=== PATIENT | male | born 1995 ===

== ENCOUNTER 2018-06-28 21:31 | Emergency (ER) | payer SELFPAY ==
--- NOTE | 2018-06-28 22:15 | ED PDOC ---
HPI: Psych/Substance Abuse Time Seen by Provider: 06/28/18 21:41 Chief Complaint (Nursing): Altered Mental Status Chief Complaint (Provider): Altered Mental Status ED Caveat: Intoxicated History Per: EMS History/Exam Limitations: intoxication Onset/Duration Of Symptoms: Unknown Current Symptoms Are (Timing): Still Present Modifying Factor(s): Alcohol Additional Complaint(s): 23 y/o male brought in by EMS for a crisis evaluation. EMS report the patient's mother called 911 due to the patient's bizarre behavior. Patiently had reportedly drank alcohol today. Patient is unwilling to provide any history. Patient noted to be acting very bizarre in the ED. PMD: no provider Past Medical History Reviewed: Historical Data, Nursing Documentation, Vital Signs Vital Signs: Last Vital Signs Temp Pulse 124 H 06/28/18 21:34 Resp 20 06/28/18 21:34 BP 142/90 06/28/18 21:34 Pulse Ox 98 06/28/18 21:34 - Medical History PMH: No Chronic Diseases - Surgical History Surgical History: No Surg Hx - Family History Family History: States: Unknown Family Hx - Social History Alcohol: > 2 Drinks/Day - Allergies Allergies/Adverse Reactions: Allergies Allergy/AdvReac Type Severity Reaction Status Date / Time No Known Allergies Allergy Verified 06/28/18 21:33 Review of Systems Review Of Systems: ROS cannot be obtained secondary to pt's inabilty to answer questions. Physical Exam - Reviewed Nursing Documentation Reviewed: Yes Vital Signs Reviewed: Yes - Physical Exam Appears: Positive for: No Acute Distress Head Exam: Positive for: ATRAUMATIC, NORMOCEPHALIC Skin: Positive for: Normal Color, Warm, Dry Eye Exam: Positive for: Normal appearance, EOMI, PERRL Neck: Positive for: Normal, Painless ROM Cardiovascular/Chest: Negative for: Bradycardia, Tachycardia Respiratory: Negative for: Accessory Muscle Use, Respiratory Distress Gastrointestinal/Abdominal: Positive for: Normal Exam, Soft. Negative for: Tenderness Extremity: Positive for: Normal ROM Neurological/Psych: Positive for: Awake, Alert, Gait (steady), Other (slurred speech. Patient making strange gestures and sounds in the ED. ) - Laboratory Results Result Diagrams: 06/28/18 22:54 06/28/18 22:54 - ECG O2 Sat by Pulse Oximetry: 98 (RA) Pulse Ox Interpretation: Normal Medical Decision Making Medical Decision Making: Time: 2145 Impression: 23 y/o male brought in for crisis evaluation, in setting of possible substance abuse. Plan: -- EKG -- Alcohol Serum -- CMP -- Urine Drug Screen -- Magnesium -- ED Urine Dipstick -- CBC with Differentials -- Ativan 2 mg IM -- Haldol 5 mg IM -- 1:1 Observation -- Accucheck -- Restraint: Violent or harm to self/other -- Urinalysis -- Patient is displaying alcoholic delirium, is not making appropriate decisions for self. Medications were administered for relief of agitation and physical restraints were required for patient and staff safety, patient placed under 1:1 observation. 5:13 Labs reviewed show no clinically significant abnormalities Patient cleared by crisis. Diagnosis: alcohol induced mood disorder Scribe Attestation: Documented by Giselle Hernandez, acting as a scribe Farhat Bautista MD. Provider Scribe Attestation: All medical record entries made by the Scribe were at my direction and personally dictated by me. I have reviewed the chart and agree that the record accurately reflects my personal performance of the history, physical exam, medical decision making, and the department course for this patient. I have also personally directed, reviewed, and agree with the discharge instructions and disposition. Scribe Attestation: Documented by Joanne Mckeon, acting as a scribe Farhat Bautista MD. Provider Scribe Attestation: All medical record entries made by the Scribe were at my direction and personall y dictated by me. I have reviewed the chart and agree that the record accurately reflects my personal performance of the history, physical exam, medical decision making, and the department course for this patient. I have also personally directed, reviewed, and agree with the discharge instructions and disposition. Disposition - Clinical Impression Clinical Impression: Alcohol-induced mood disorder - Disposition Disposition: Routine/Home Disposition Time: 05:13 Condition: STABLE Instructions: Effects of Alcohol on Your Health Forms: [facility] ([place]) Print Language: AFGHAN
[2018-06-28 23:09] LABS: BASO % 0.6 % (0.0-2.0); EOS % 0.6 % (0.0-4.0); LYMPH # 1.6 K/uL (1.0-4.3); LYMPH % 23.5 % (20.0-40.0); MEAN CELL VOLUME 98.3 fl (80.0-94.0); MEAN CORPUSCULAR HEMOGLOBIN 34.1 pg (27.0-31.0); MEAN CORPUSCULAR HGB CONC 34.7 g/dL (33.0-37.0); MONO # 0.4 K/uL (0.0-0.8); MONO % 6.4 % (0.0-10.0); NEUT # 4.7 K/uL (1.8-7.0); NEUT % 68.9 % (50.0-75.0); NRBC % 0.1 % (0.0-0.0); RBC 4.1 Mil/uL (4.40-5.90); RED CELL DISTRIBUTION WIDTH 12.5 % (11.5-14.5); WHITE BLOOD COUNT 6.8 K/uL (4.8-10.8)
[2018-06-28 23:20] LABS: ALB/GLOB RATIO 1.7 (1.0-2.1); ALBUMIN 4.6 g/dL (3.5-5.0); ALT/SGPT 45 U/L (21-72); AST/SGOT 54 U/L (17-59); BLOOD UREA NITROGEN 15 mg/dl (9-20); CALCIUM 8.9 mg/dL (8.4-10.2); GFR NON-AFRICAN AMERICAN > 60
[2018-06-29 00:58] VITALS: RESP 16
[2018-06-29 04:44] LABS: BARBITURATES, UR NEGATIVE (NEGATIVE); BENZODIAZEPINES, UR NEGATIVE (NEGATIVE); OPIATES, UR NEGATIVE (NEGATIVE); PHENCYCLIDINE, UR NEGATIVE (NEGATIVE)
[2018-06-29 04:46] LABS: URINE BILIRUBIN NEGATIVE (NEGATIVE); URINE BLOOD NEGATIVE (NEGATIVE); URINE CLARITY CLEAR (Clear); URINE COLOR STRAW (YELLOW); URINE GLUCOSE (UA) NEG (NEGATIVE); URINE LEUKOCYTE ESTERASE NEG Leu/uL (Negative); URINE PROTEIN NEGATIVE (NEGATIVE); URINE UROBILINOGEN 0.2-1.0 mg/dL (0.2-1.0)
[2018-06-29 05:20] VITALS: BP 126/63; PULSE 86; TEMP 98
[2018-06-29 06:51] VITALS: O2SAT 98
--- NOTE | 2018-06-29 18:46 | CARD ---
APPROVED REPORT Date of service: 06/29/2018 EKG Measurement Heart [id number] <Conclusion> Sinus tachycardia Otherwise normal ECG
== END 2018-06-29 05:18 | disposition home or self-care (01) ==
LOC: H.ER 21:31
DX: F10.94 Alcohol use, unspecified with alcohol-induced mood disorder (principal); Z00.8 Encounter for other general examination
CPT/HCPCS: 80053; 81003; 82948; 83735; 85025; 93005; 96372; 99285; G0480; J1630; J2060